=== PATIENT | female | born 1970 ===

== ENCOUNTER 2022-09-28 06:10 | Inpatient (IN) ==
[~2022-09-28 06:10] MED LIST: Buffered Lidocaine 1% SYRIN 1 ml INTRADERM ONE; Sodium Citrate/Citric Acid LIQ 15 ML UDC PO ONE
[2022-09-28] MEDS ORDERED: Scopolamine 1 mg/72hr PATCH ONE (06:44)
[2022-09-28] MEDS ORDERED: Heparin 5000 UNITS/ML 1 mL VIAL ONE (06:44)
[2022-09-28] MEDS ORDERED: Sodium Citrate/Citric Acid LIQ 15 ML UDC ONE (06:45)
[2022-09-28] MEDS ORDERED: ceFAZolin *3* GM in NS PREMIX 3 GM/100 ML BAG IV ONE (06:45)
[2022-09-28] MEDS ORDERED: Sevoflurane BOTTLE ONE (07:01)
[2022-09-28] MEDS ORDERED: Desflurane 240 ML INH ONE ×2 (07:01→07:02)
[2022-09-28] MEDS ORDERED: Rocuronium 50 mg VIAL 10 mg/ml 5 ml VIAL (50 mg) ONE ×2 (07:02→12:26)
[2022-09-28] MEDS ORDERED: Dexamethasone IV 4 MG/ML VIAL 1 ml VIAL ONE (07:02)
[2022-09-28] MEDS ORDERED: Propofol 10 MG/ML 20 ML BTL ONE (07:02)
[2022-09-28] MEDS ORDERED: Lidocaine 2% PF 5 ML VIAL ONE (07:02)
[2022-09-28] MEDS ORDERED: Metoclopramide 5 MG/ML VIAL (10 mg) ONE (07:02)
[2022-09-28] MEDS ORDERED: Ondansetron 4 mg VIAL 2 MG/ML 2 ml VIAL ONE (07:02)
[2022-09-28] MEDS ORDERED: Phenylephrine IV 10 MG/ML 1 ml VIAL ONE (07:03)
[2022-09-28] MEDS ORDERED: fentaNYL 100 mcg/2 ml 50 MCG/ML VIAL ONE ×4 (07:04→12:34)
[2022-09-28] MEDS ORDERED: Methylene Blue 0.5 % 50 MG/10 ML AMP IV ONE (07:05)
[2022-09-28] MEDS ORDERED: Naloxone 0.4 mg VIAL 0.4 mg/ml 1 ml VIAL IV PRN (07:50)
[2022-09-28] MEDS ORDERED: HYDROmorphone 0.5 MG/0.5 ML SYRINGE ONE ×2 (08:43→10:16)
[2022-09-28] MEDS ORDERED: Ondansetron 4 mg VIAL 2 MG/ML 2 ml VIAL IV PRN (11:47)
[2022-09-28] MEDS: fentaNYL 100 mcg/2 ml 50 MCG/ML VIAL IV PRN ×4 (11:52→13:19)
[2022-09-28] MEDS ORDERED: Lorazepam PYXIS KEY PRN (11:57)
[2022-09-28] MEDS ORDERED: Acetaminophen IV 1 GM/100ML 1,000 MG/100 ML BAG IV SCH (12:00)
[2022-09-28] MEDS: Acetaminophen IV 1 GM/100ML 1,000 MG/100 ML BAG IV SCH ×2 (14:50→19:43)
[2022-09-28] MEDS ORDERED: Lactated Ringers 1000 ml BAG 1,000 ML IV SCH (15:00)
[2022-09-28] MEDS: Heparin 5000 UNITS/ML 1 mL VIAL SUBCUT SCH ×2 (15:06→22:08)
[2022-09-28] MEDS: HYDROmorphone 0.5 MG/0.5 ML SYRINGE IV SLOW PU PRN (17:58)
[2022-09-28] MEDS: LORazepam 2 mg VIAL 1 ml IV PUSH PRN ×2 (17:59→22:03)
[2022-09-28] MEDS: Famotidine IV 10 MG/ML 2 ml VIAL (20 mg) IV SLOW PU SCH (22:05)
[2022-09-29] MEDS: Lactated Ringers 1000 ml BAG 1,000 ML IV SCH ×2 (00:31→09:18)
[2022-09-29] MEDS: HYDROmorphone 1 MG/1 ML SYRINGE IV SLOW PU PRN ×2 (01:58→13:28)
[2022-09-29] MEDS: Acetaminophen IV 1 GM/100ML 1,000 MG/100 ML BAG IV SCH ×2 (02:01→09:29)
[2022-09-29] MEDS: Heparin 5000 UNITS/ML 1 mL VIAL SUBCUT SCH (05:43)
[2022-09-29] MEDS: HYDROmorphone 0.5 MG/0.5 ML SYRINGE IV SLOW PU PRN (05:49)
[2022-09-29] MEDS: Famotidine IV 10 MG/ML 2 ml VIAL (20 mg) IV SLOW PU SCH (09:19)
[2022-09-29] MEDS ORDERED: Rizatriptan ODT 10 mg TAB (NF) PO PRN (09:59)
[2022-09-29 11:52] VITALS: BP 110/64
[2022-09-29] MEDS ORDERED: D5W 1/2 NS KCl 20 meq 1000 ml 1,000 ML IV SCH (15:00)
== END 2022-09-29 14:10 | disposition home or self-care (01) | DRG 403 ==
LOC: AA 06:10 → SSU 11:48
PROVIDERS: ADMIT Surgery; ATTEND Surgery

== ENCOUNTER 2022-11-06 19:26 | Observation (INO) ==
[2022-11-06] MEDS ORDERED: Metoclopramide 5 MG/ML VIAL (10 mg) IV ONE (20:01)
[2022-11-06] MEDS ORDERED: Thiamine 100 MG/ML 2 ml VIAL 100 MG, Folic Acid IV 1 MG, Multiple Vitamin IV ADULT 10 M... IV ONE (20:01)
[2022-11-06 20:44] LABS: Hematocrit 40 % (35-47); Hemoglobin 12.8 g/dL (12.0-16.0); Mean Corpuscular HGB Conc 32 g/dL (31-36); Mean Corpuscular Hemoglobin 27 pg (27-31); Mean Corpuscular Volume 85 fL (80-97); Mean Platelet Volume 8.6 fL (7.4-10.4); Platelet Count 254 10^3/uL (150-450); Red Blood Count 4.71 10^6 /uL (3.70-4.87); Red Cell Distribution Width 16 % (10-15); White Blood Count 6.7 10^3/uL (3.5-10.8)
[2022-11-06 20:49] LABS: ABS Basophils 0.1 10^3/ul (0-0.2); ABS Eosinophils 0.2 10^3/ul (0-0.6); ABS Lymphocytes 1.5 10^3/ul (1.0-4.8); ABS Monocytes 0.7 10^3/ul (0-0.8); ABS Neutrophils 4.5 10^3/ul (1.5-7.7); Eosinophil % 2.4 %; Lymphocyte % 21.1 %
[2022-11-06 21:30] LABS: Albumin/Globulin Ratio 1.9 (1-3); C Reactive Protein 4.96 mg/L (<8.01); Calcium 9.2 mg/dL (8.6-10.3); Globulin 2.1 g/dL (2-4); Magnesium 1.8 mg/dL (1.9-2.7); Potassium 3.7 mmol/L (3.5-5.0); Total Bilirubin 0.4 mg/dL (0.2-1.0); Total Protein 6.1 g/dL (6.4-8.9); eGFR CKD-EPI 91.3 (>60)
[2022-11-06] MEDS ORDERED: Iohexol 350 (CONTRAST) 500 ML MDV IV ONE (21:42)
[2022-11-06] MEDS ORDERED: Magnesium Sulfate 2 gm BAG 2 GM/50 ML BAG IVPB ONE (21:47)
[2022-11-06] MEDS ORDERED: Lactated Ringers 1000 ml BAG 1,000 ML IV SCH (22:00)
[2022-11-07] MEDS: HYDROmorphone 1 MG/1 ML SYRINGE IV SLOW PU PRN ×2 (00:55→20:25)
[2022-11-07] MEDS: Ondansetron 4 mg VIAL 2 MG/ML 2 ml VIAL IV PRN ×2 (01:05→18:14)
[2022-11-07] MEDS: Lactated Ringers 1000 ml BAG 1,000 ML IV SCH ×2 (02:43→17:07)
[2022-11-07] MEDS: Acetaminophen IV 1 GM/100ML 1,000 MG/100 ML BAG IV PRN ×2 (08:19→17:21)
[2022-11-07] MEDS ORDERED: Pantoprazole 80 mg in NS BAG 80 MG/250 ML BAG IV SCH (14:00)
[2022-11-07] MEDS ORDERED: Midazolam 10 mg/10 ml VIAL 1 mg/ml 10 ml VIAL (10 mg) ONE (14:53)
[2022-11-07] MEDS ORDERED: fentaNYL 100 mcg/2 ml 50 MCG/ML VIAL ONE (14:53)
[2022-11-07] MEDS ORDERED: Albuterol HFA INHALER 8 gm MDI INH PRN (18:33)
[2022-11-07] MEDS ORDERED: Metoclopramide 5 MG/ML VIAL (10 mg) IV PRN (18:35)
[2022-11-08] MEDS: Lactated Ringers 1000 ml BAG 1,000 ML IV SCH (01:47)
[2022-11-08] MEDS: HYDROmorphone 1 MG/1 ML SYRINGE IV SLOW PU PRN (03:48)
[2022-11-08] MEDS: Acetaminophen IV 1 GM/100ML 1,000 MG/100 ML BAG IV PRN (06:58)
[2022-11-08 07:31] VITALS: BP 130/79
== END 2022-11-08 12:09 | disposition home or self-care (01) ==
LOC: ED 19:26 → EDHOLD 19:26 → SSU 23:48
PROVIDERS: ADMIT Surgery Surgical Critical Care; ATTEND Surgery Surgical Critical Care